=== PATIENT | male | born 1975 | race African-American/Black ===

== ENCOUNTER 2024-01-01 16:55 | Emergency (ER) | payer OTHER, SELFPAY ==
[2024-01-01 16:59] VITALS: BP 158/96; BMI 23.7
[2024-01-01] MEDS: TORADOL 15 MG IV (17:22)
[2024-01-01] MEDS: NSS 1000 IV (17:23)
[2024-01-01 17:49] LABS: % Basophils 0.9 % (0-2); % Eosinophils 5.2 % (0-6); % Immature Granulocytes 0.2 % (0-0.5); % Lymphocytes 49.7 % (20.5-51.1); % Monocytes 12.5 % (1.7-9.3); % Neutrophils 31.5 % (42.2-75.2); Absolute Basophils 0.1 10^3/uL (0-0.2); Absolute Eosinophils 0.3 10^3/uL (0-0.7); Absolute Lymphocytes 2.9 10^3/uL (1.2-3.4); Absolute Monocytes 0.7 10^3/uL (0.1-0.6); Absolute Neutrophils 1.8 10^3/uL (1.4-6.5); Hematocrit 47.1 % (39.0-52.0); Hemoglobin 15.3 g/dL (13.0-18.0); Mean Corp Hgb Conc. 32.5 g/dL (33.0-37.0); Mean Corpuscular Hgb 31.5 pg (27.0-31.0); Mean Corpuscular Volume 97.1 fL (80.0-94.0); Mean Platelet Volume 9.2 fL (7.4-10.4); Nucleated Red Blood Cells % 0 % (-); Platelet Count 320 10^3/uL (130-400); Red Blood Cell Count 4.85 10^6/uL (4.70-6.10); Red Cell Dist. Width 13.1 % (11.5-14.5); White Blood Cell Count 5.8 10^3/uL (4.8-10.8)
[2024-01-01 18:00] VITALS: BP 149/79
[2024-01-01 18:01] LABS: Blood Urea Nitrogen 20 mg/dl (9-20); Carbon Dioxide 27 mmol/L (22-30); Chloride 101 mmol/L (98-107); Estimated Creatinine Clearance > 125 ml/min; Glucose 98 mg/dl (70-99); Potassium 4.2 mmol/L (3.5-5.1); Sodium 138 mmol/L (135-145); eGFR > 60.00
--- NOTE | 2024-01-01 20:23 | ED.GENMED ---
History of Present Illness
General
Chief Complaint: Fall
Source: patient and ambulance crew
Exam Limitations: none
Time Seen by Provider: 01/01/24 16:56
Travel History
Have you had any contact with someone who has COVID-19?: No
Do you have any symptoms of coronavirus? Fever > 100 degrees, chills, cough, shortness of breath, sore throat, loss of taste or smell, muscle aches, or headache?: No
History of Present Illness
History of Present Illness:
Patient slipped and fell on a wet floor. Fell backwards hitting his buttock and low back and also hitting his head. No LOC. Mostly complaining of low back pain. No numbness tingling or weakness. No chest pain or abdominal pain.
Past History
Past History
ED Past Medical History: Other (Chronic back pain)
ED Past Surgical History: Orthopedic
Social History
Living: [facility]
Review of Systems
Review of Systems
All Other Systems: Not applicable
Respiratory: Reports no symptoms
Cardiac: Reports no symptoms
ABD/GI: Reports no symptoms
Phy Exam
Physical Exam
Physical Exam:
TRAUMA EXAM:
VITAL SIGNS: Vital signs reviewed, cooperative
DISTRESS: No active disease
EYES: Pupils reactive, no orbital trauma
NOSE: No deformity or epistaxis
FACE AND SCALP: No scalp or facial trauma, external canals no blood
NECK: Supple nontender
BACK: Back nontender, pelvis stable to compression
RESPIRATORY: No distress, breath sounds normal, no tender chest wall
CARDIAC: No murmur, pulses equal and strong
ABDOMEN: Soft nontender bowel sounds normal
SKIN: Skin intact no bleeding, color normal
EXTREMITIES: Nontender. Paralumbar tenderness. Pelvis stable.
NEUROLOGICAL: Alert, oriented, no motor deficits
PSYCH: Mood affect normal
Course
Orders/Labs/Results
Orders:
Orders
01/01/24 17:02
CT Abd/pel W Iv Cont (trauma) Urgent
Comment:
Reason For Exam: trauma. mostly low back/pelvic pain
CT Cervical Spine W/o Iv Contr Urgent
Comment:
Reason For Exam: trauma. head injury
CT Head W/o Iv Contrast Urgent
Comment:
Reason For Exam: trauma head injury
Cardiac Monitoring- Treatment ONCE
IV Insert/Care/Rem.- Treatment PRN
0.9% Sodium Chloride 1000 ml [Nss] 1,000 ml IV BOLUS
Ketorolac [Toradol] 15 mg IV NOW STA
01/01/24 17:28
Basic Metabolic Panel Urgent
Complete Blood Count/With Diff Urgent
Abnormal Lab Results
01/01/24
17:28
MCV 97.1 H fL
(80.0-94.0)
MCH 31.5 H pg
(27.0-31.0)
MCHC 32.5 L g/dL
(33.0-37.0)
Absolute Monos (auto) 0.7 H 10^3/uL
(0.1-0.6)
Neutrophils % 31.5 L %
(42.2-75.2)
Monocytes % 12.5 H %
(1.7-9.3)
01/01/24 17:28
01/01/24 17:28
Vital Signs
Initial and Last Documented VS:
Initial Vital Signs
Temp Pulse Resp BP Pulse Ox
98.7 F 66 16 158/96 100
01/01/24 16:59 01/01/24 16:59 01/01/24 16:59 01/01/24 16:59 01/01/24 16:59
Last Documented Vital Signs
Temp Pulse Resp BP Pulse Ox
98.7 F 58 13 158/96 100
01/01/24 16:59 01/01/24 17:30 01/01/24 17:30 01/01/24 16:59 01/01/24 17:30
*Radiology
Radiology exam reviewed: radiology read reviewed (CT is negative)
*Pulse Oximetry
Patient hypoxic: no
*Critical Care Note
Total Time (30-74mins, 75-104mins- exclusive of procedures): Not Applicable
Update Note
Update Note:
2024.... Patient rechecked. No distress. Hungry. I gave him a piece of my pizza. He has no allergies. He sat up without any issues eating the pizza. Stable for discharge to follow-up
ED Attending Note
-
Portions of this chart may have been created with voice recognition software.� Occasional wrong word or��sound alike� substitutions may have occurred due to the inherent limitations of voice recognition software.
Discharge Plan
Departure
Patient Disposition: Home (Routine Discharge)
Date of Disposition: 01/01/24
Time of Disposition: 20:25
Patient with high blood pressure during this ER visit?: Yes
Discharge Problem:
Fall, Low back contusion, Minor head injury
Instructions: Head Injury in Adults (DC), Contusion (DC), BLOOD PRESSURE
Referrals:
[facility] [Family Provider] -
Activity Restrictions/Additional Instructions:
Advil or Motrin for pain
Recheck with increased pain abdominal pain chest pain shortness of breath or any other concerning symptoms
Interventions
Interventions:
*Risk Screen - Suicide Last Done: 01/01/24 16:59
*General Assessment Last Done: 01/01/24 16:59
*Neglect/Abuse Screening Last Done: 01/01/24 16:59
ED- Fall Risk Assessment Last Done: 01/01/24 16:59
*ED COVID-19 Vaccine History Last Done: 01/01/24 16:59
ED-Musculoskeletal Assessment Last Done: 01/01/24 17:04
ED- Neurological Assessment Last Done: 01/01/24 17:04
ED-Skin Assessment Last Done: 01/01/24 17:04
Discharge Date and Time
Print Language: FILIPINO
== END 2024-01-01 20:48 | disposition home or self-care (01) ==
LOC: EMR 16:55
PROVIDERS: EMERGENCY PHYSICIAN Emergency Medicine
DX: S30.0XXA Contusion of lower back and pelvis, initial encounter (principal); S09.90XA Unspecified injury of head, initial encounter; W01.0XXA Fall on same level from slipping, tripping and stumbling without subsequent striking against object, initial encounter; R03.0 Elevated blood-pressure reading, without diagnosis of hypertension
CPT/HCPCS: 99285; 96374; 96361; 70450; 72125; 74177; 80048; 85025; Q9967